=== PATIENT | female | born 1935 | race Caucasian/White ===

== ENCOUNTER → 2017-09-21 | Outpatient (CLI) | payer MEDICARE, OTHER ==
[~2017-09-21] MED LIST: ADULT LOW DOSE81 MG PO; ADVAIR HFA 230M12 GM INH; ANTACID500 MG PO; AVELOX 400 MG400 MG PO; CALCIUM 500 +1 EAC5 PO; CALCIUM 600 +1 EAC1 PO; CETIRIZINE HCL5 MG PO; CHOLEST-OFF PO; CIPROFLOXACIN500 M1 PO; CO Q-1010 MG; COMBIVENT INH; COZAAR 25 MG TA25 M1 PO; COZAAR100 MG PO; CRESTOR5 MG; CRESTOR5 MG PO; FLAX OIL1000 MG PO; FLORASTOR250 MG PO; FORTEO PEN750 MCG/3; Florastor 250MG CAPS PO; HYDROCHLOROTHIA25 M1 PO; IBUPROFEN; K-DUR 20 MEQ T20 MEQ PO; KLOR-CON; LEVAQUIN 500 M500 M2 PO; LEVOXYL88 MCG; MAG-OX 400 TAB400 M1 PO; MEDROLDOSEPACK PO; MULTIVITAMINS PO; NORVASC 5 MG TAB5 MG PO; PEPCID20 MG PO; PHENERGAN 25 MG25 M1; PREDNISONE 10 M10 MG PO; PREDNISONE PO; PREMARIN0.3 MG; PRILOSEC 20 MG20 MG PO; PROAIR HFA8.5 GM INH; PROMETHAZINE12.5 M1 PO; RESTORIL15 MG PO; SINGULAIR 10 MG10 M1 PO; SOLU-MEDRO40 MG/1 M2 INH; SPIRIVA INH; SYNTHROID75 MCG PO; SYNTHROID88 MCG PO; TOPROL XL50 MG PO; VANCO1GM PO; VANCOCIN 250 M250 M1 PO; VANCOMYCIN HCL 11 G2 IVPB; VANCOMYCIN125 MG/2.1 PO; VERAPAMIL ER240 MG; VITAMIN D1000 UNI1 PO; ZOFRAN ODT4 MG DISSOLVE; ZPAK PO; ZYRTEC10 M2 PO
== END ==
LOC: M.CT 12:28
DX: J43.9 Emphysema, unspecified (principal); R91.8 Other nonspecific abnormal finding of lung field; R63.4 Abnormal weight loss

== ENCOUNTER 2018-02-07 14:21 | Inpatient (IN) | payer MEDICARE, OTHER ==
[~2018-02-07] VITALS: Ht 152.4 cm; Wt 50.8 kg
[~2018-02-07 14:21] MED LIST changes: -CALCIUM 600 +1 EAC1 PO; -CETIRIZINE HCL5 MG PO; -FLORASTOR250 MG PO; -PREDNISONE 10 M10 MG PO; -SYNTHROID88 MCG PO; -VANCOMYCIN125 MG/2.1 PO
[2018-02-07] MEDS ORDERED: SYNTHROID88 MCG PO (14:31)
[2018-02-07] MEDS ORDERED: CALCIUM 600 +1 EAC1 PO (14:32)
[2018-02-07 15:09] LABS: URINE BILIRUBIN NEGATIVE (Negative); URINE BLOOD 2+ (Negative); URINE CLARITY CLEAR; URINE COLOR YELLOW; URINE GLUCOSE-RANDOM NEGATIVE (Negative); URINE KETONES NEGATIVE (Negative); URINE LEUKOCYTES-REFLEX TRACE (Negative); URINE NITRITE-REFLEX NEGATIVE (Negative); URINE PROTEIN NEGATIVE (Negative); URINE SPECIFIC GRAVITY <= 1.005 (1.005-1.030); URINE UROBILINOGEN 0.2 E.U./dl (0.2-1.0)
[2018-02-07 15:18] LABS: HEMATOCRIT 45.9 % (37.0-47.0); HEMOGLOBIN 15.2 gm/dL (12.0-15.0); MCH 29.4 pg (26.0-34.0); MCHC 33.2 g/dL (28.0-37.0); MCV 88.6 fL (80.0-100.0); MPV 7.6 fl. (7.2-11.1); NUCLEATED RBCS 0 /100WBC; PLATELET COUNT* 268 thou/uL (150-400); RBC 5.18 mil/uL (4.20-5.00); RDW-CV 16.7 % (10.5-14.5); WBC 17.9 thou/uL (4.0-11.0)
[2018-02-07 15:20] LABS: MUCUS None Seen strn/LPF (None Seen); SQUAMOUS 4-10 Moderate /LPF (0-3)
[2018-02-07 15:21] LABS: CASTS None Seen /LPF (None Seen); CRYSTALS None Seen /LPF (None Seen); URINE RBC 3-10 Few /HPF (0-2)
[2018-02-07 15:22] LABS: BACTERIA-REFLEX 1-9 Few /HPF (None Seen); URINE WBC-REFLEX 0-5 Rare /HPF (0-5)
[2018-02-07 15:30] LABS: CALCIUM 8.2 mg/dL (8.5-10.1); CREATININE 0.6 mg/dL (0.6-1.3); POTASSIUM 3.4 mmol/L (3.5-5.1)
[2018-02-07 15:41] LABS: ALBUMIN 3.2 g/dL (3.4-5.0); MAGNESIUM 2.1 mg/dL (1.8-2.4); TOTAL BILIRUBIN 0.7 mg/dL (<0.1-1.0); TOTAL PROTEIN 7.2 g/dL (6.4-8.2); TROPONIN-I LEVEL 0.19 ng/mL (<0.06)
[2018-02-07 16:02] LABS: ABSOLUTE LYMPHOCYTES 0.9 thou/uL (0.8-5.3); ABSOLUTE MONOCYTES 1.3 thou/uL (0.0-1.2); ABSOLUTE NEUTROPHILS 15.8 thou/uL (1.6-8.1)
[2018-02-07 16:03] LABS: PLATELET ESTIMATE ADEQUATE
--- NOTE | 2018-02-07 16:35 | EKG ---
[place] [address] ELECTROCARDIOGRAM REPORT Name: NIKKI CHINCHILLA Room: [place] [address] ADM IN M.R.#: [id number] Admission: 02/07/18 Attend Phys: Sharon Leal Discharge: Date of : 39 Report #: [id number] THIS REPORT FOR: //name// [facility] ED Test Date: 2018-02-07 Test Time: 14:30:24 Pat Name: NIKKI CHINCHILLA Department: Room: [facility] Gender: F Ovens Supervisor: THUY : 1935 Requested By: Damian Maddox Order Number: [id number] MD: Nick Mendieta Measurements Intervals [place] Rate: 116 P: 63 RI: 164 QRS: 45 QRSD: 87 T: 53 QT: 341 QTc: 474 Interpretive Statements Sinus tachycardia LAE, consider biatrial enlargement Anterior infarct, old possible Compared to ECG 12/11/2015 18:12:40 Myocardial infarct finding now present Electronically Signed On 02-07-2018 16:35:46 CDT by Nick Mendieta [email or web address] <ELECTRONICALLY SIGNED> By: Nick Mendieta MD, [facility] 02/07/18 1635 1430 1430 Nick Mendieta MD, [facility] /EPI
[2018-02-07 17:42] VITALS: BP 124/70
[2018-02-07 18:15] VITALS: BP 112/64
[2018-02-07] MEDS ORDERED: CETIRIZINE HCL5 MG PO (18:45)
--- NOTE | 2018-02-07 19:02 | NUR ---
PT ARRIVED TO ROOM 227 AT APPROX 1805, PT A/O X4, C/O SOME PAIN TO RIGHT ARM FROM IV INFILTRATION IN ER, PT REPORTS PAIN MEDS GIVEN IN ER HELPED. PT HAS PRODUCTIVE COUGH, VERY WEEZY, REPORTS SOA FOR 2 DAYS. SAT IS 94% ON 2L O2. VSS, SR ON THE MONITOR. PT UP AD SHIV IN ROOM. DENIES FALLS. ADMISSION HX AND ASSESEMENT DONE. REVIEWED MEDS WITH PT. PT ABLE TO EAT DINNER.
[2018-02-07 19:30] VITALS: BP 109/53
[2018-02-08] VITALS: BP 102/55
[2018-02-08 04:00] VITALS: BP 100/45
--- NOTE | 2018-02-08 04:55 | NUR ---
PT AAOX4 RESP REG AND UNALBORED SKIN W/D NO ACUTE DISTRESS NOTED. WITH ACTIVITY PT NOTED TO HAVE AUDIBLE WHEEZES. TELEMETRY PACK INTACT IWTH ALARMS SET. VSS AND NO ACUTE CHANGES DURIGN SHIFT. WILL CONTINUE TO MONITOR. PRODUCTIVE COUGH NOTED, WITH CLEAR SPUTUM.
[2018-02-08 08:05] VITALS: BP 120/60
--- NOTE | 2018-02-08 10:15 | NUR ---
RECEIVED REPORT FROM SHABNAM AND ASSUMED CARE OF PT @ 0883.PT A/O X4,VSS, TRACING SR ON THE MONITOR.LUNG SOUNDS ARE CLEAR.LAST BM WAS YESTERDAY.IV PATENT AND SALINE LOCKED.IV ANTIBIOTICS GIVEN.PT IS CALM AND COOPERATIVE WITH NO C/O PAIN AT TIME OF ASSESSMENT.PT IS UP AD SHIV IN ROOM.PT LEFT RESTING IN BED WITH CALL LIGHT WITHIN REACH.WILL CONTINUE TO MONITOR.
--- NOTE | 2018-02-08 11:43 | NUR ---
PT.RESTING IN BED. ALERT AND ORIENTED. STATED SHE LIVES ALONE BUT HER FAMILY IS SUPPORTIVE. DOES NOT USE ANY DME. NO HOME HEALTH RECENTLY. SHE IS INDEPENDNET AT HOME WITH EVERYTHING. SHE DOES NOT FEEL SHE WILL HAVE ANY DISCHARGE NEEDS. HOPES TO GO HOME SOON.
--- NOTE | 2018-02-08 14:02 | 2DMMODE ---
[place] [address] 2 D/M-MODE ECHOCARDIOGRAM Name: NIKKI CHINCHILLA Room: [facility] ADM IN Rebekah#: [id number] Admission: 02/07/18 Attend Phys: John Mae Discharge: Date of : 39 Date of Service: 02/08/18 1401 Report #: [id number] THIS REPORT FOR: //name// APPROVED REPORT Study performed: 02/08/2018 10:11:57 EXAM: Comprehensive 2D, Doppler, and color-flow Echocardiogram Patient Location: In-Patient Room #: [facility] Status: routine BSA: 1.47 HR: 96 bpm BP: 120/60 mmHg Rhythm: NSR Other Information Study Quality: Good Indications Elevated Troponin 2D Dimensions LVEF(%): 74.82 (>50%) IVSd: 9.25 (7-11mm) LVOT Diam: 18.95 (18-24mm) LVDd: 35.57 mm PWd: 8.75 (7-11mm) Ascending Ao: 27.48 (22-36mm) LVDs: 20.36 (25-40mm) Aortic Root: 28.00 mm Dowell's LVEF: 74.82 % Volumes Left Atrial Volume (Systole) LA ESV Index: 21.00 mL/m2 Aortic Valve AoV Peak Tj.: 2.00 m/s AO Peak Gr.: 15.97 mmHg LVOT Max P.90 mmHg AO Mean Gr.: 8.76 mmHg LVOT Mean P.49 mmHg LVOT Max V: 1.11 m/s AO V2 VTI: 36.10 cm LVOT Mean V: 0.73 m/s GAGANDEEP (VTI): 2.23 cm2 LVOT V1 VTI: 28.58 cm Mitral Valve E/A Ratio: 0.80 [place] [address] 2 D/M-MODE ECHOCARDIOGRAM Name: NIKKI CHINCHILLA Room: [place] [address] ADM IN M.R.#: [id number] Admission: 02/07/18 Attend Phys: John Mae Discharge: Date of : 39 Date of Service: 02/08/18 1401 Report #: [id number] MV Decel. Time: 124.32 ms MV E Max Tj.: 1.34 m/s MV PHT: 36.05 ms MVA (PHT): 6.10 cm2 TDI E/Lateral E': 14.89 E/Medial E': 16.75 Medial E' Tj.: 0.08 m/s Lateral E' Tj.: 0.09 m/s Pulmonary Valve PV Peak Tj.: 1.01 m/s PV Peak Gr.: 4.04 mmHg Tricuspid Valve RAP Estimate: 5.00 mmHg TR Peak Gr.: 28.66 mmHg RVSP: 33.66 mmHg PA Pressure: 33.66 mmHg Left Ventricle The left ventricle is normal size. There is normal LV segmental wall motion. Mild concentric left ventricular hypertrophy. Left ventricular systolic function is normal. The left ventricular ejection fraction is within the normal range. LVEF is 65-70%. Grade I - abnormal relaxation pattern. Right Ventricle The right ventricle is normal size. The right ventricular systolic function is normal. Atria The left atrium size is normal. The right atrium size is normal. Aortic Valve Moderate aortic valve sclerosis. No aortic regurgitation is present. Mild aortic stenosis. Mitral Valve Moderate mitral annular calcification. There is no mitral valve regurgitation noted. No evidence of mitral valve stenosis. Tricuspid Valve The tricuspid valve is normal in structure. Trace tricuspid regurgitation. Mild pulmonary hypertension[place] [address] 2 D/M-MODE ECHOCARDIOGRAM Name: NIKKI CHINCHILLA Room: [address] IN [facility]#: [id number] Admission: 02/07/18 Attend Phys: oJhn Mae Discharge: Date of : 39 Date of Service: 02/08/18 1401 Report #: [id number] The pulmonary valve is normal in structure. There is no pulmonic valvular regurgitation. Great Vessels The aortic root is normal in size. IVC is normal in size and collapses with >50% inspiration Pericardium There is no pericardial effusion. <Conclusion> The left ventricle is normal size. Mild concentric left ventricular hypertrophy. Left ventricular systolic function is normal. The left ventricular ejection fraction is within the normal range. LVEF is 65-70%. Grade I - abnormal relaxation pattern. The right ventricle is normal size. The left atrium size is normal. Moderate aortic valve sclerosis. Mild aortic stenosis. Moderate mitral annular calcification. There is no mitral valve regurgitation noted. No evidence of mitral valve stenosis. The tricuspid valve is normal in structure. IVC is normal in size and collapses with >50% inspiration There is no pericardial effusion. There is normal LV segmental wall motion. <ELECTRONICALLY SIGNED> By: Nick Mendieta MD, FACC 02/08/18 140 140 140 Nick Mendieta MD, FACC /INF
[2018-02-08 14:50] LABS: CREATININE 0.8 mg/dL (0.6-1.3); MAGNESIUM 2.2 mg/dL (1.8-2.4); POTASSIUM 3.6 mmol/L (3.5-5.1)
--- NOTE | 2018-02-08 16:48 | NUR ---
VSS,CARDIAC MONITORING IN PLACE, TRACING SR-ST.PT REMAINS ON 2L O2 NC WHILE UP.PT PROGRESSING TOWARDS GOALS.USING RESPIRATORY FLUTTER AT BEDSIDE.NO C/O PAIN.IV ANTIBIOTIC GIVEN.PT INFORMED OF PLAN OF CARE AND COMMUNICATES UNDERSTANDING.PT AMBULATES IN ROOM WITH BATHROOM PRIVILEGES.HOURLY ROUNDING COMPLETED FOR PT SAFETY.CALL LIGHT WITHIN REACH.WILL CONTINUE TO MONITOR FOR DURATION OF SHIFT.
[2018-02-08 19:55] VITALS: BP 122/55
[2018-02-09] VITALS: BP 114/56
[2018-02-09 04:00] VITALS: BP 107/50
--- NOTE | 2018-02-09 05:58 | NUR ---
PT SLEPT ON AND OFF THIS SHIFT. ASSESSMENT DOCUEMTNED. MEDS GIVEN PER E-MAR. IV PATENT. NO REPORTS OF PAIN. PT REPORTED THAT SHE DOES NOT LIKE HOW "JITTERY" THE STEROIDS MAKE HER FEEL. PT VERBALIZES THAT SHE IS CONCERNED ABOUT GOING HOME ON PO STEROIDS SHE STATES THEY UPSET HER STOMACH REALLY BAD. O2 WORN PRN THROUGH NIGHT. WILL CONTINUE WITH PLAN OF CARE.
[2018-02-09 07:56] VITALS: BP 129/65
--- NOTE | 2018-02-09 10:38 | NUR ---
ASSUMED CARE OF PATIENT THIS AM AT 0730. PATIENT IS ALERT AND ORIENTED X 4. SHE DENIES PAIN, BUT C/O ANXIOUSNESS. PATIENT ASSISTED UP TO THE BATHROOM WITH STANDBY ASSIST WITH O2 ON. PATIENT C/O SOA WITH ACTIVITY. TELE SHOWS SR TO ST AND A OCCASIONAL PVC. PATIENT CONTINUES ON IV ANTIBIOTICS AND STERIODS. SHE APPEARS TO BE PROGRESSING TOWARDS GOALS.
[2018-02-09 12:00] VITALS: BP 122/52
[2018-02-09 16:00] VITALS: BP 114/73
[2018-02-09 19:30] VITALS: BP 117/54
[2018-02-10] VITALS: BP 106/57
[2018-02-10 04:00] VITALS: BP 114/47
[2018-02-10 04:59] LABS: HEMATOCRIT 37.4 % (37.0-47.0); MCH 28.9 pg (26.0-34.0); MCHC 32.7 g/dL (28.0-37.0); MCV 88.4 fL (80.0-100.0); MPV 8.4 fl. (7.2-11.1); RBC 4.22 mil/uL (4.20-5.00); RDW-CV 16.8 % (10.5-14.5); WBC 22.2 thou/uL (4.0-11.0)
[2018-02-10 05:09] LABS: ALBUMIN 2.5 g/dL (3.4-5.0); CALCIUM 8.1 mg/dL (8.5-10.1); CREATININE 0.5 mg/dL (0.6-1.3); MAGNESIUM 2.2 mg/dL (1.8-2.4); TOTAL BILIRUBIN 0.2 mg/dL (<0.1-1.0); TOTAL PROTEIN 5.2 g/dL (6.4-8.2)
[2018-02-10 05:10] LABS: HEMOGLOBIN 12.2 gm/dL (12.0-15.0)
--- NOTE | 2018-02-10 05:10 | NUR ---
PT AAOX4 RESP REG AND UNLABORED SKIN W/D NO ACUTE DISTRESS NOTED. PT STATES THE BREATHIGN TREATMENTS MAKE HER ANXIOUS, HOWEVER HAS REFUSED ANIETY MEDS THIS SHIFT. TELEMETRY PACK INTACT WITH ALARMS SET. VSS AND NO SCUTE CHANGES DURIGN SHIFT WILL CONITNNUE TO MONITOR
[2018-02-10 08:30] VITALS: BP 138/77
--- NOTE | 2018-02-10 11:57 | NUR ---
ASSUMED PT CARE AT 0700 PT IS ALERT AND ORIENTED X 4 PT HAS SOA WHEN AMBULATING IS ON 2L/NC, PT IS UP AD SHIV PT IS NOT A FALL RISK, PT IS SR ON THE MONITOR, GAVE ANTIBIOTICS, PT DENIES PAIN, WILL CONTINUE TO MONITOR
[2018-02-10 12:31] VITALS: BP 98/59
[2018-02-10 16:00] VITALS: BP 103/70
[2018-02-10 20:00] VITALS: BP 141/66
[2018-02-11 00:10] VITALS: BP 133/67
[2018-02-11 04:58] VITALS: BP 132/53
[2018-02-11 05:11] LABS: HEMATOCRIT 40.7 % (37.0-47.0); HEMOGLOBIN 13.2 gm/dL (12.0-15.0); MCH 28.9 pg (26.0-34.0); MCHC 32.5 g/dL (28.0-37.0); MCV 89.1 fL (80.0-100.0); MPV 8.1 fl. (7.2-11.1); RBC 4.57 mil/uL (4.20-5.00); RDW-CV 16.9 % (10.5-14.5)
[2018-02-11 05:24] LABS: CREATININE 0.6 mg/dL (0.6-1.3); MAGNESIUM 2.1 mg/dL (1.8-2.4); POTASSIUM 3.3 mmol/L (3.5-5.1)
--- NOTE | 2018-02-11 05:50 | NUR ---
PATIENT DID NOT SHOW SIGNS OF SOB OR DISTRESS. PATIENT VITALS ARE STABLE. PATIENT RESTED IN BED, NO ACUTE CHANGES. PATIENT UP TO TOLIET WITH STAND BY ASSIST. FALL PRECAUTIONS IN PLACE, BED ALARM ON, CALL LIGHT WITH IN REACH, HOURLY ROUNDING OBSERVED.
--- NOTE | 2018-02-11 07:04 | NUR ---
PATIENT SPOKE ON NOSE BLEED, PATIENT REQUEST FOR NASAL SALINE FLUSH. CALL TO DOCTOR. PATIENT IS NOT CURRENTLY BLEEDING.
--- NOTE | 2018-02-11 07:38 | NUR ---
PATIENT HAD BOWEL MOVEMENT LAST NIGHT.
[2018-02-11 08:05] VITALS: BP 141/82
[2018-02-11 12:00] VITALS: BP 132/75
[2018-02-11 16:00] VITALS: BP 121/72
--- NOTE | 2018-02-11 18:09 | NUR ---
ASSUMED CARE OF PT AT 0732. PT REMAINS A&O X4, CALMA ND COOPERATIVE. PT VSS ON ROOM AIR AND TRACING SR ON THE MONITOR. PT HAS HAD NO C/O PAIN OR DISTRESS TODAY. SHE IS STABLE AT REST ON ROOM AIR BUT DESATS WITH ANY ACTIVITY. PT HAS BEEN UP SBA TO THE BATHROOM. PT HAS A POOR APPETITE AND HAS ATE LESS THAN 75% OF ALL MEALS TODAY. PT LUNGS ARE COARSE WITH INTERMITTEN WHEEZING. HOURLY ROUNING COMPLETED FOR COMFORT AND SAFTEY. NURSING WILL CONTINUE TO MONITOR.
[2018-02-11 20:00] VITALS: BP 137/70
[2018-02-12] VITALS: BP 132/73
--- NOTE | 2018-02-12 03:41 | NUR ---
PT ALERT ORIENTED. PT ON RA. O2 SATS LOW 90S. RT SUGGESTING EXERCISE OX BEFORE GOING HOME. TELEMETRY SHOWS SR. PT STATED ITCHING WAS DRIVING HER CRAZY AND SOMETHING HAD TO BE DONE. DR BRADY ORDERED HYDROXAZINE AND CAPSAICIN. PT TOOK HYDROXAZINE AND REFUSED CAPSAICIN CREAM. ORDER OBTAINED TO DC CAPSAICIN.
[2018-02-12 04:39] VITALS: BP 160/83
[2018-02-12 05:04] LABS: HEMATOCRIT 42.8 % (37.0-47.0); MCH 28.8 pg (26.0-34.0); MCHC 32.6 g/dL (28.0-37.0); MCV 88.4 fL (80.0-100.0); MPV 7.5 fl. (7.2-11.1); NUCLEATED RBCS 0 /100WBC; PLATELET COUNT* 465 thou/uL (150-400); RBC 4.84 mil/uL (4.20-5.00); RDW-CV 16.9 % (10.5-14.5); WBC 14.8 thou/uL (4.0-11.0)
[2018-02-12 05:10] LABS: ALBUMIN 2.8 g/dL (3.4-5.0); CALCIUM 8.4 mg/dL (8.5-10.1); CREATININE 0.6 mg/dL (0.6-1.3); MAGNESIUM 2.2 mg/dL (1.8-2.4); POTASSIUM 4.4 mmol/L (3.5-5.1); TOTAL BILIRUBIN 0.3 mg/dL (<0.1-1.0); TOTAL PROTEIN 5.6 g/dL (6.4-8.2)
[2018-02-12 05:34] LABS: ABSOLUTE EOSINOPHILS 0.1 thou/uL (0.0-0.7); ABSOLUTE LYMPHOCYTES 1.3 thou/uL (0.8-5.3); ABSOLUTE MONOCYTES 0.3 thou/uL (0.0-1.2); PLATELET ESTIMATE INCREASED
[2018-02-12 05:35] LABS: ANISOCYTOSIS 1+; POIKILOCYTOSIS 1+
[2018-02-12 08:00] VITALS: BP 128/85
[2018-02-12 11:49] VITALS: BP 139/84
[2018-02-12 15:59] VITALS: BP 139/84
--- NOTE | 2018-02-12 16:05 | NUR ---
SAY met with pt and Dr and nurse to discuss safe dc planning. Pt to dc home alone today with HH services to follow. SAY arranged and faxed referral, orders, med list to pt preference of HH, [facility]. Pt did not qualify for oxygen at this time. Pt said she has supportive family who can check on her and said she felt more confident about dc home with HH services arranged.
[2018-02-12] MEDS ORDERED: FLORASTOR250 MG PO (16:11)
[2018-02-12] MEDS ORDERED: PREDNISONE 10 M10 MG PO (16:13)
[2018-02-12] MEDS ORDERED: VANCOMYCIN125 MG/2.1 PO (17:10)
--- NOTE | 2018-02-15 09:21 | CON ---
[address] [address] CONSULTATION Name: NIKKI CHINCHILLA Room: [address] IN M.R.#: [id number] Admission: 02/07/18 Attend Phys: Sharon Leal Discharge: 02/12/18 Date of : 39 Report #: [id number] THIS REPORT FOR: //name// CC: Erick Mae DATE OF SERVICE: 02/08/2018 CONSULT REQUESTED BY: Dr. Mae. INDICATION FOR CONSULTATION: COPD exacerbation. HISTORY OF PRESENT ILLNESS: The patient is an 82 years old female. I follow her in the office. I, however, do not have the office records available at this time. The patient does have a history of COPD. She does not report being on long-term oxygen therapy. 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 She also does have a lung nodule. The patient is an active smoker. The patient at this time admitted with increasing shortness of breath. This is her primary complaint. The patient also says that she felt febrile; however, there is no recorded fever. She has had an increase in cough, not much sputum. There is no chest pain . She has had an increase in clear nasal discharge. She attributes this to her nasal allergies, however, this is more than her baseline. She says that initially she did have a sore throat as well. There is no increase in swelling of lower extremities. There is no calf pain. REVIEW OF SYSTEMS: The patient answers to the negative for all of the questions asked for review of systems. A 12-point review of systems is performed including she does not have any gastrointestinal complaints at this time. The patient has been treated with corticosteroids in addition to broad spectrum antibiotics as well as nebulized bronchodilator. She reports improvement in shortness of breath compared with yesterday. PAST MEDICAL HISTORY: COPD, not on long-term oxygen according to the patient while I follow her in the office. I do not have records available at this time and I have requested the office to fax them. The patient has a history of prednisone intolerance. Lung nodule, I followed this with serial CAT scans. The last CT I have available in fact shows reduction in size. The patient reports that I had done a PET scan and found it to be negative. I do not, however, have the PET scan report available at this time. Recurrent C. difficile colitis in 2017, she was treated by the GI service at that time with oral vancomycin; hysterectomy; oophorectomy; appendectomy; vertebral fractures when she was a teenager; left fibula and right ankle sprain; hypertension; gastroesophageal reflux disease; hypothyroidism; gallbladder surgery. Last available echocardiogram shows a left ventricular ejection fraction of 60-65% [place] [address] CONSULTATION Name: LUBARebekahCHONA Rebekah Room: [address] IN M.R.#: [id number] Admission: 02/07/18 Attend Phys: Sharon Leal Discharge: 02/12/18 Date of : 39 Report #: [id number] with a pulmonary artery systolic of 40. Her baseline creatinine is normal. I do not have her PFTs available at this time. SOCIAL HISTORY: She is a smoker, half a pack a day. She still smokes. She reports having smoked continuously for the last 12 years. Previous to that she had discontinued smoking, but she had smoked in the past in her life as well. Overall, it does appear that there is a long history of smoking. There is no known history of heavy alcohol use or illegal drug use. ALLERGIES: She has had nausea and vomiting with PREDNISONE. This is a side effect. This is not an allergy. Regardless, the patient is intolerant to p.o. PREDNISONE. She tolerates intravenous Solu-Medrol without any problems. LISINOPRIL, ZOCOR, and ACTIFED also mentioned as allergies. CURRENT MEDICATIONS: List in Flashtalking reviewed. HOME MEDICATIONS: List also in Flashtalking reviewed. FAMILY HISTORY: Noncontributory. PHYSICAL EXAMINATION: GENERAL: She is alert, awake and oriented. VITAL SIGNS: She has a pulse of 78 and a blood pressure of 120/60. She is saturating 93%. She is on 1.5 liters oxygen via nasal cannula. She is afebrile with a temperature of 36.6. Her respiratory rate is around 16. HEENT: There is no throat erythema. NECK: Does not show raised JVP. CHEST: Breath sounds bilaterally equal, decreased. No added sounds. HEART: Regular. There is no murmur. ABDOMEN: Soft and nontender. EXTREMITIES: Lower extremities show no edema and no calf tenderness. IMAGING: The patient's chest x-ray is consistent with COPD with no large infiltrates identified. LABORATORY DATA: The patient's CBC as well as chemistries which do show significant hyponatremia as well as hypokalemia in [facility] reviewed. There is mild elevation in troponin I to 0.19. D-dimer is not elevated. ASSESSMENT AND PLAN: 1. Chronic obstructive pulmonary disease exacerbation. For now, I will continue with Solu-Medrol as well as nebulized bronchodilators as currently prescribed. If she continues to improve, then I will be inclined to cut back on the steroid dose tomorrow morning. The patient previously has had significant nausea and vomiting with PREDNISONE and she is therefore PREDNISONE intolerant. At this time when we switch her over to oral therapy, [place] [address] CONSULTATION Name: NIKKI CHINCHILLA Rebekah Room: [address] IN M.R.#: [id number] Admission: 02/07/18 Attend Phys: Sharon Leal Discharge: 02/12/18 Date of : 39 Report #: [id number] over to a Decadron taper instead and see if she tolerates it better. I am also awaiting records from the office regarding previous testing we have done for her COPD as well. 2. Lung nodule/rule out infiltrates. It is possible that there are small patchy infiltrates on the chest x-ray. I do not see any large lobar infiltrates. Considering her history of Clostridium difficile colitis, recurrent, in the past, I will be conservative with antibiotics. To evaluate this further, I went ahead and ordered a repeat CT chest without contrast. I decided not to give her contrast because overall suspicion of thromboembolism is low as her D-dimer is not elevated. If there are no large infiltrates seen on this CT chest, then I will be inclined to discontinue her ceftriaxone and continue Zithromax for around 5 days. The patient reports that I have done a PET scan previously to evaluate the lung nodule and that the PET scan was reported to be negative. I have requested records. I do not have the PET scan report available at this time. 3. Hyponatremia and hypokalemia. CT chest as above. I placed her on K and mag protocol. We will also repeat a BMP: If sodium level is significantly decreased, then she may need to be placed on a fluid restriction. Considering previous history of diarrhea, recommend giving her magnesium intravenously only and avoid p.o. magnesium replacement if possible. 4. Past history of Clostridium difficile colitis. The patient is high risk of recurrence with antibiotics. See discussion regarding being conservative with antibiotics as above. I did order low dose oral vancomycin as well as Florastor and suggest continuing for the duration that she is on antibiotics. 5. Active smoker. Obviously, smoking cessation is strongly recommended. 6. Deep vein thrombosis prophylaxis with Lovenox. Thanks for this consultation. <ELECTRONICALLY SIGNED> By: Aaron Albarado MD 02/15/18 0921 1342 2345Adave Amado MD /nt
== END 2018-02-12 18:15 | disposition home health service (06) | DRG 871 ==
LOC: M.ERS 14:21 → M.2W 16:25 → M.TBA-ER 16:25 → M.2W 18:10
PROVIDERS: Emergency Medicine Emergency Medical Services; Family Medicine; Internal Medicine Critical Care Medicine; ADMIT Internal Medicine
DX: A41.9 Sepsis, unspecified organism (principal); I21.A1 Myocardial infarction type 2; J18.9 Pneumonia, unspecified organism; J96.21 Acute and chronic respiratory failure with hypoxia; J44.1 Chronic obstructive pulmonary disease with (acute) exacerbation; E87.1 Hypo-osmolality and hyponatremia; N39.0 Urinary tract infection, site not specified; J44.0 Chronic obstructive pulmonary disease with (acute) lower respiratory infection; E44.0 Moderate protein-calorie malnutrition; J98.11 Atelectasis; I10 Essential (primary) hypertension; E87.6 Hypokalemia; E03.9 Hypothyroidism, unspecified; K21.9 Gastro-esophageal reflux disease without esophagitis; T38.0X5A Adverse effect of glucocorticoids and synthetic analogues, initial encounter; D47.3 Essential (hemorrhagic) thrombocythemia; F17.210 Nicotine dependence, cigarettes, uncomplicated; I95.89 Other hypotension; R91.8 Other nonspecific abnormal finding of lung field; Z87.81 Personal history of (healed) traumatic fracture; Z68.21 Body mass index [BMI] 21.0-21.9, adult; Y92.89 Other specified places as the place of occurrence of the external cause; Z87.19 Personal history of other diseases of the digestive system; Z90.710 Acquired absence of both cervix and uterus; Z90.721 Acquired absence of ovaries, unilateral; Z90.49 Acquired absence of other specified parts of digestive tract; Z71.6 Tobacco abuse counseling; Z79.51 Long term (current) use of inhaled steroids; Z79.899 Other long term (current) drug therapy; Z88.8 Allergy status to other drugs, medicaments and biological substances

== ENCOUNTER → 2018-03-29 | Outpatient (CLI) | payer MEDICARE, OTHER ==
[~2018-03-29] MED LIST changes: +CALCIUM 600 +1 EAC1 PO; +CETIRIZINE HCL5 MG PO; +FLORASTOR250 MG PO; +PREDNISONE 10 M10 MG PO; +SYNTHROID88 MCG PO; +VANCOMYCIN125 MG/2.1 PO
== END ==
LOC: M.CT 10:58
DX: I70.0 Atherosclerosis of aorta (principal); I25.10 Atherosclerotic heart disease of native coronary artery without angina pectoris; R91.8 Other nonspecific abnormal finding of lung field; Z87.311 Personal history of (healed) other pathological fracture

== ENCOUNTER 2018-11-01 14:06 | Emergency (ER) | payer MEDICARE, OTHER ==
[~2018-11-01] VITALS: Ht 162.6 cm; Wt 44.5 kg
[2018-11-01 14:36] LABS: ABSOLUTE BASOPHILS 0.1 thou/uL (0.0-0.2); ABSOLUTE EOSINOPHILS 0.2 thou/uL (0.0-0.7); ABSOLUTE LYMPHOCYTES 1.4 thou/uL (0.8-5.3); ABSOLUTE NEUTROPHILS 8.7 thou/uL (1.6-8.1); BASOPHILS 0.7 %; EOSINOPHILS 1.5 %; HEMATOCRIT 42.2 % (37.0-47.0); LYMPHOCYTES 12.6 %; MCHC 33.1 g/dL (28.0-37.0); MCV 87.7 fL (80.0-100.0); MONOCYTES 8.7 %; MPV 7.7 fl. (7.2-11.1); NUCLEATED RBCS 0 /100WBC; PLATELET COUNT* 349 thou/uL (150-400); POLYS 76.5 %; RBC 4.81 mil/uL (4.20-5.00); RDW-CV 16.6 % (10.5-14.5); WBC 11.4 thou/uL (4.0-11.0)
[2018-11-01 14:54] LABS: TROPONIN-I LEVEL 0.19 ng/mL (<0.06)
[2018-11-01 15:26] LABS: CALCIUM 8.7 mg/dL (8.5-10.1); CREATININE 0.7 mg/dL (0.6-1.3); POTASSIUM 3.1 mmol/L (3.5-5.1)
[2018-11-01 15:38] LABS: ALBUMIN 3.8 g/dL (3.4-5.0); TOTAL BILIRUBIN 0.4 mg/dL (<0.1-1.0); TOTAL PROTEIN 7.2 g/dL (6.4-8.2)
[2018-11-01 15:43] LABS: URINE BILIRUBIN NEGATIVE (Negative); URINE BLOOD TRACE (Negative); URINE CLARITY CLEAR; URINE COLOR YELLOW; URINE GLUCOSE-RANDOM NEGATIVE (Negative); URINE KETONES NEGATIVE (Negative); URINE LEUKOCYTES-REFLEX NEGATIVE (Negative); URINE NITRITE-REFLEX NEGATIVE (Negative); URINE PROTEIN NEGATIVE (Negative); URINE SPECIFIC GRAVITY <= 1.005 (1.005-1.030); URINE UROBILINOGEN 0.2 E.U./dl (0.2-1.0)
[2018-11-01] MEDS ORDERED: VANCOMYCIN125 MG/2.1 PO (16:57)
[2018-11-01] MEDS ORDERED: FLAGYL500 M1 PO (16:57)
[2018-11-01 17:02] VITALS: BP 116/58
--- NOTE | 2018-11-05 12:46 | EKG ---
[place] [address] ELECTROCARDIOGRAM REPORT Name: NIKKI CHINCHILLA Room: [facility]#: [id number] Admission: 11/01/18 Attend Phys: Discharge: 11/01/18 Date of : 39 Report #: [id number] THIS REPORT FOR: //name// [facility] ED Test Date: 2018-11-01 Test Time: 14:39:30 Pat Name: NIKKI CHINCHILLA Department: Room: Gender: F Trash Man: Naomi STANFORD : 1935 Requested By: Rubio Westbrook Order Number: [id number] MD: Dandre Chaparro Measurements Intervals [place] Rate: 81 P: 73 [place]: 185 QRS: 46 QRSD: 85 T: 55 QT: 382 QTc: 444 Interpretive Statements Sinus rhythm Borderline low voltage, extremity leads Baseline wander in lead(s) I,III,aVL Compared to ECG 02/07/2018 14:30:24 Sinus tachycardia no longer present Myocardial infarct finding no longer present Electronically Signed On 11-05-2018 12:46:31 CDT by Dandre Chaparro [email or web address] <ELECTRONICALLY SIGNED> By: Dandre Chaparro MD, [facility] 11/05/18 1246 1439 1439 Dandre Chaparro MD, [facility] /EPI
== END 2018-11-01 17:03 | disposition home or self-care (01) ==
LOC: M.ERS 14:06
PROVIDERS: Family Medicine
DX: R19.7 Diarrhea, unspecified (principal); R91.1 Solitary pulmonary nodule; E03.9 Hypothyroidism, unspecified; K21.9 Gastro-esophageal reflux disease without esophagitis; J45.909 Unspecified asthma, uncomplicated; F17.210 Nicotine dependence, cigarettes, uncomplicated; Z88.8 Allergy status to other drugs, medicaments and biological substances; Z90.710 Acquired absence of both cervix and uterus; Z90.49 Acquired absence of other specified parts of digestive tract; Z90.721 Acquired absence of ovaries, unilateral; Z87.01 Personal history of pneumonia (recurrent)

== ENCOUNTER → 2018-11-20 | Outpatient (CLI) | payer MEDICARE, OTHER ==
[~2018-11-20] MED LIST changes: +FLAGYL500 M1 PO
== END ==
LOC: M.CT 12:33
DX: J98.4 Other disorders of lung (principal); I25.10 Atherosclerotic heart disease of native coronary artery without angina pectoris; I31.3 Pericardial effusion (noninflammatory); I70.0 Atherosclerosis of aorta; R91.8 Other nonspecific abnormal finding of lung field

== ENCOUNTER → 2019-03-17 | Outpatient (CLI) | payer MEDICARE, OTHER ==
[~2019-03-17] MED LIST changes: +TRIAMCINOLONE A80 G2 TOP
== END ==
LOC: M.CT 11:04
DX: J43.9 Emphysema, unspecified (principal); R91.8 Other nonspecific abnormal finding of lung field

== ENCOUNTER → 2019-10-29 | Outpatient (CLI) | payer MEDICARE, OTHER | LOC: M.CT 12:27 | DX: J43.1 Panlobular emphysema (principal); R91.8 Other nonspecific abnormal finding of lung field; I25.10 Atherosclerotic heart disease of native coronary artery without angina pectoris; K76.89 Other specified diseases of liver; I35.8 Other nonrheumatic aortic valve disorders ==

== ENCOUNTER 2019-11-19 11:11 | Inpatient (IN) | payer MEDICARE, OTHER ==
[~2019-11-19] VITALS: Ht 149.9 cm; Wt 45.4 kg
[2019-11-19] VITALS (14 sets, daily range): BP systolic 50–131; BP diastolic 36–86
[2019-11-19 11:46] LABS: ABSOLUTE BASOPHILS 0.1 thou/uL (0.0-0.2); ABSOLUTE EOSINOPHILS 0.1 thou/uL (0.0-0.7); ABSOLUTE LYMPHOCYTES 1.6 thou/uL (0.8-5.3); ABSOLUTE MONOCYTES 0.8 thou/uL (0.0-1.2); ABSOLUTE NEUTROPHILS 9.8 thou/uL (1.6-8.1); BASOPHILS 0.5 %; EOSINOPHILS 1.2 %; HEMOGLOBIN 14.9 gm/dL (12.0-15.0); LYMPHOCYTES 12.5 %; MCH 28.9 pg (26.0-34.0); MCHC 33.1 g/dL (28.0-37.0); MCV 87.2 fL (80.0-100.0); MONOCYTES 6.5 %; MPV 7.5 fl. (7.2-11.1); NUCLEATED RBCS 0 /100WBC; PLATELET COUNT* 348 thou/uL (150-400); POLYS 79.3 %; RBC 5.16 mil/uL (4.20-5.00); WBC 12.4 thou/uL (4.0-11.0)
[2019-11-19 11:52] LABS: APTT 25.5 Seconds (25.0-31.3); PROTIME 10.4 Seconds (9.20-11.50)
[2019-11-19 11:58] LABS: CALCIUM 8.7 mg/dL (8.5-10.1); CREATININE 0.7 mg/dL (0.6-1.3); POTASSIUM 3.9 mmol/L (3.5-5.1)
[2019-11-19] MEDS ORDERED: PROAIR HFA8.5 GM (12:30)
[2019-11-19] MEDS ORDERED: SPIRIVA18 MCG (12:31)
[2019-11-19] MEDS ORDERED: ADVAIR 100-501 EACH (12:31)
[2019-11-19] MEDS ORDERED: SYNTHROID88 MC1 PO (12:31)
[2019-11-19 18:01] LABS: HEMATOCRIT 42.8 % (37.0-47.0); HEMOGLOBIN 14.1 gm/dL (12.0-15.0)
--- NOTE | 2019-11-19 18:26 | NUR ---
PT ADMITTED FROM IR. CHEST TUBE IN ZONIA LUNG IN PLACE. PLACED TO SUCTION. IV BOLUS STARTED FOR BP 58/40. PT ORIENTED TO ROOM, CALL LIGHT, AND BED CONTROLS. PRN PAIN MEDICATION GIVEN.
[2019-11-19 21:28] LABS: URINE BILIRUBIN NEGATIVE (Negative); URINE BLOOD NEGATIVE (Negative); URINE CLARITY CLEAR; URINE COLOR YELLOW; URINE GLUCOSE-RANDOM NEGATIVE (Negative); URINE KETONES NEGATIVE (Negative); URINE LEUKOCYTES-REFLEX NEGATIVE (Negative); URINE NITRITE-REFLEX NEGATIVE (Negative); URINE PROTEIN NEGATIVE (Negative); URINE UROBILINOGEN 0.2 E.U./dl (0.2-1.0)
[2019-11-20] VITALS (21 sets, daily range): BP systolic 85–140; BP diastolic 37–89
[2019-11-20 04:14] LABS: ABSOLUTE LYMPHOCYTES 1.2 thou/uL (0.8-5.3); ABSOLUTE NEUTROPHILS 10.2 thou/uL (1.6-8.1); BASOPHILS 0.4 %; EOSINOPHILS 0.4 %; HEMATOCRIT 34.6 % (37.0-47.0); LYMPHOCYTES 9.4 %; MCH 29.1 pg (26.0-34.0); MCHC 33.3 g/dL (28.0-37.0); MCV 87.4 fL (80.0-100.0); MONOCYTES 8.1 %; MPV 7.5 fl. (7.2-11.1); NUCLEATED RBCS 0 /100WBC; POLYS 81.7 %; RBC 3.95 mil/uL (4.20-5.00); WBC 12.5 thou/uL (4.0-11.0)
[2019-11-20 04:16] LABS: HEMOGLOBIN 11.5 gm/dL (12.0-15.0); PLATELET COUNT* 269 thou/uL (150-400)
[2019-11-20 04:36] LABS: ALBUMIN 2.7 g/dL (3.4-5.0); CALCIUM 7.7 mg/dL (8.5-10.1); CREATININE 0.9 mg/dL (0.6-1.3); POTASSIUM 3.8 mmol/L (3.5-5.1); TOTAL BILIRUBIN 0.3 mg/dL (<0.1-1.0); TOTAL PROTEIN 5.1 g/dL (6.4-8.2)
--- NOTE | 2019-11-20 11:44 | NUR ---
ICU rounds: Chest tube in place, lung biopsy yesterday. Pain control. Plan to turn suction off today, tube out prior to dc. Pt normally resides at home alone. Independent. Pt wears 2.5L o2 at [facility]. Hx of [facility]. Hx of skilled at [facility]. Anticipate dc to home tomorrow, Pt wants HH, arrange through [facility]. [facility] [phone] f:[phone]
--- NOTE | 2019-11-20 11:47 | NUR ---
Nutrition: consult for poor intake. No intake records, RN reported to got choked on breakfast and VS ordered. Wt is WNL and stable from wt of 100 lb a year ago. Albumin 2.7, BUN 22. Meds reviewed. Assessed at low nutrition risk at this time. Rec offer snacks/supplements for po intake <50%.
--- NOTE | 2019-11-20 18:28 | NUR ---
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
[2019-11-21] VITALS (14 sets, daily range): BP systolic 91–142; BP diastolic 34–77
--- NOTE | 2019-11-21 04:59 | NUR ---
VITALS STABLE, AFEBRILE. NO CHANGE TO CHEST TUBE INSERTION SITE, SUCTION REMAINS OFF. PT SLEPT THROUGH THE NIGHT. NO BM, UOP 800CC. OTHERWISE UNEVENTFUL NIGHT. CALL LIGHT WITHIN REACH. PT ABLE TO TURN SELF IN BED. WILL CONTINUE MONITORING.
--- NOTE | 2019-11-21 10:00 | NUR ---
ASSUMED CARE AT 0700. PATIENT A&O X 4, PLEASANT AND COOPERATIVE WITH CARES. DENIES CHEST PAIN. REMAINS IN SR WITH FREQUENT PVC. SOB NOTED WITH MINIMAL EXCERTION. LEFT CHEST TUBE IS TO WATER SEAL AND PATIENT CONTINUES TO TOLERATED THAT WELL. FULL BED BATH GIVEN. POOR APPETITE NOTED. MENU GIVEN TO PATIENT SO MAYBE SHE COULD CHOOSE WHAT SHE EATS IN HOPES OF IMPROVING HER APPETITE. NO FURTHER CONCERNS AT THIS TIME. WILL CONTINUE TO MONITOR AND CARE PER PLAN OF CARE.
[2019-11-21 11:01] LABS: ABSOLUTE EOSINOPHILS 0.2 thou/uL (0.0-0.7); ABSOLUTE LYMPHOCYTES 1.2 thou/uL (0.8-5.3); ABSOLUTE MONOCYTES 0.9 thou/uL (0.0-1.2); ABSOLUTE NEUTROPHILS 9.8 thou/uL (1.6-8.1); BASOPHILS 0.4 %; EOSINOPHILS 1.4 %; HEMATOCRIT 33.4 % (37.0-47.0); HEMOGLOBIN 11.3 gm/dL (12.0-15.0); LYMPHOCYTES 9.7 %; MCH 29.5 pg (26.0-34.0); MCHC 33.7 g/dL (28.0-37.0); MCV 87.5 fL (80.0-100.0); MONOCYTES 7.3 %; MPV 8.3 fl. (7.2-11.1); NUCLEATED RBCS 0 /100WBC; PLATELET COUNT* 263 thou/uL (150-400); POLYS 81.2 %; RBC 3.82 mil/uL (4.20-5.00); RDW-CV 17.4 % (10.5-14.5)
--- NOTE | 2019-11-21 12:11 | PATH ---
[address] [address] PATHOLOGY RPT PROCEDURE Name: CHERELLE CHINCHILLA Room: [address] IN M.R.#: [id number] Admission: 11/19/19 Date of : 39 Discharge: Report #: [id number] Path Case #: [id number] [facility] Accession Number: [id number] . 01 Material submitted: . lung - LEFT LOWER LUNG MASS. Modifiers: left, lower lobe . 01 Clinical history: . L lung mass; lung carcinoma . 02 Diagnosis: LLL lung, image-guided core biopsies: - Minimal anthrocotic pigment depostion in otherwise essentially normal lung parenchyma. (KAYLA:lane; 11/21/2019) QMS 11/21/2019 1140 Local . 02 Electronically signed: . Rolly Sierra MD, Pathologist NPI- [id number] . 01 Gross description: . The specimen is received in formalin, labeled "Pleacher, Cherelle, LLL lung" and consists of multiple delicate and minute pink spencer needle core fragments measuring 1.5 x 0.3 x 0.1 cm in aggregate which are entirely submitted in A1. (SDY; 11/20/2019) SYU/SYU 11/20/2019 1123 Local . 02 Pathologist provided ICD-10: R91.8 . 02 CPT . 922786 Specimen Comment: A courtesy copy of this report has been sent to [phone], [phone] Specimen Comment: [phone], , Specimen Comment: Report sent to ,DR CHALINO SENA / DR SKY Performed at: [address], [place] [id number] MD Nicholas Shukla MD Phone: [phone] Performed at: 02 [facility] [address], [place], [place] [id number] MD Rolly Sierra MD Phone: [phone]
--- NOTE | 2019-11-21 13:34 | NUR ---
ICU rounds: Pt medically stable to dc to home today, pending chest tube removal. CM to fax HH orders to [facility]. Pt to complete an ex ox to determine if she needs o2 with mobility. Pt's concentrator is through [facility]. Awaiting RT recs.
--- NOTE | 2019-11-21 15:01 | NUR ---
LEFT SIDE CHEST TUBE REMOVED PER ORDERS. PATIENT TOLERATED PROCEDURE WELL. DENIES SOB, O2 SATS 97% ON 2 LITERS. PATIENT ON BEDREST FOR 1 HOUR. WILL CONTINUE TO MONITOR AND CARE PER PLAN OF CARE.
== END 2019-11-21 18:00 | disposition home health service (06) | DRG 199 ==
LOC: M.LAB 11:11 → M.PUL 11:11 → M.LAB 12:00 → M.CT 13:00 → M.TBA 15:23 → M.ICU 15:23 → M.TBA-CV 15:24 → M.ICU 17:11
PROVIDERS: Internal Medicine Pulmonary Disease; ADMIT Internal Medicine; ATTEND Internal Medicine
PROC: 0W9B30Z Drainage of Left Pleural Cavity with Drainage Device, Percutaneous Approach (ICD-10-PCS; principal; 2019-11-19)
PROC: 0BBJ3ZX Excision of Left Lower Lung Lobe, Percutaneous Approach, Diagnostic (ICD-10-PCS; principal; 2019-11-19)
DX: J93.9 Pneumothorax, unspecified (principal); J96.21 Acute and chronic respiratory failure with hypoxia; E43 Unspecified severe protein-calorie malnutrition; E03.9 Hypothyroidism, unspecified; J45.909 Unspecified asthma, uncomplicated; K21.9 Gastro-esophageal reflux disease without esophagitis; R91.8 Other nonspecific abnormal finding of lung field; E78.5 Hyperlipidemia, unspecified; J44.9 Chronic obstructive pulmonary disease, unspecified; Z88.8 Allergy status to other drugs, medicaments and biological substances; Z90.710 Acquired absence of both cervix and uterus; Z90.721 Acquired absence of ovaries, unilateral; Z87.891 Personal history of nicotine dependence; Z90.49 Acquired absence of other specified parts of digestive tract; Z68.20 Body mass index [BMI] 20.0-20.9, adult

== ENCOUNTER 2020-02-16 17:59 | Emergency (ER) | payer MEDICARE, OTHER ==
[~2020-02-16] VITALS: Ht 149.9 cm; Wt 43.1 kg
[~2020-02-16 17:59] MED LIST changes: +ADVAIR 100-501 EACH; +PROAIR HFA8.5 GM; +SPIRIVA18 MCG; +SYNTHROID88 MC1 PO
[2020-02-16] MEDS ORDERED: NORVASC 2.5 MG2.5 M1 PO (18:22)
[2020-02-16] MEDS ORDERED: NORCO 5-325 TA1 EAC2 PO (20:41)
[2020-02-16] MEDS ORDERED: TRAMADOL 50 MG50 MG PO (20:48)
[2020-02-16] MEDS ORDERED: ONDANSETRON HCL4 M2 PO (20:48)
[2020-02-16 20:56] VITALS: BP 147/82
== END 2020-02-16 21:04 | disposition home or self-care (01) ==
LOC: M.ERS 17:59
DX: M54.5 Low back pain (principal); I10 Essential (primary) hypertension; E03.9 Hypothyroidism, unspecified; J45.909 Unspecified asthma, uncomplicated; K21.9 Gastro-esophageal reflux disease without esophagitis; F17.210 Nicotine dependence, cigarettes, uncomplicated; Z90.710 Acquired absence of both cervix and uterus; Z90.49 Acquired absence of other specified parts of digestive tract; Z88.8 Allergy status to other drugs, medicaments and biological substances; Z90.721 Acquired absence of ovaries, unilateral; Z87.01 Personal history of pneumonia (recurrent)